=== PATIENT | female | born 2000 | race Two or more races ===

== ENCOUNTER 2020-01-21 20:29 | Emergency (ER) | payer MEDICAID, OTHER ==
[2020-01-22 00:40] VITALS: BP 144/87
== END 2020-01-22 01:00 | disposition home or self-care (01) ==
LOC: ER 20:33
DX: U07.1 COVID-19 (principal); J18.9 Pneumonia, unspecified organism; R51.9 Headache, unspecified; R19.7 Diarrhea, unspecified; E66.09 Other obesity due to excess calories
CPT/HCPCS: 36415; 71045; 87426

== ENCOUNTER 2021-02-02 15:59 | Emergency (ER) | payer MEDICAID ==
[~2021-02-02] VITALS: Ht 172.7 cm; Wt 148.8 kg
[2021-02-02 21:12] VITALS: BP 149/98
== END 2021-02-02 21:39 | disposition home or self-care (01) ==
LOC: ER 15:59
DX: H66.91 Otitis media, unspecified, right ear (principal); J06.9 Acute upper respiratory infection, unspecified; E66.9 Obesity, unspecified; J02.9 Acute pharyngitis, unspecified